=== PATIENT | female | born 1975 | race Caucasian/White ===

== ENCOUNTER → 2018-07-03 07:26 | Outpatient (CLI) | payer BC | END | disposition home or self-care (01) | LOC: D.MRI 07:26 | DX: M75.41 Impingement syndrome of right shoulder (principal) ==

== ENCOUNTER 2018-10-01 13:28 | Outpatient (CLI) | payer BC | END 2018-10-01 23:59 | LOC: D.MAMMO 13:28 | PROVIDERS: ATTEND Family Medicine | DX: Z12.31 Encounter for screening mammogram for malignant neoplasm of breast (principal) ==